=== PATIENT | male | born 1990 | race Caucasian/White ===

== ENCOUNTER 2021-08-15 19:28 | Emergency (ER) | payer SELFPAY ==
[2021-08-15] VITALS (7 sets, daily range): BP systolic 105–133; BP diastolic 54–85; PULSE 55–74; RESP 12–18; TEMP 36.7; O2SAT 97–100; BMI 25.0
--- NOTE | 2021-08-15 19:51 | ECG_ITS ---
APPROVED REPORT Exam: Resting ECG HR:67 bpm ECG Measurements Heart Rate 67 AXES PA 168 P -90 QRSd 106 QRS 62 QT 446 T 49 QTc 471 Conclusion Unusual P axis, possible ectopic atrial rhythm Abnormal ECG Electronically signed by : Levon Milligan MD 08/16/2021 17:34:46
[2021-08-15 20:12] LABS: Basophils # 0.1 K/mm3 (0-0.2); Basophils % 0.6 % (0.1-2.0); Eosinophils # 0.1 K/mm3 (0.0-0.4); Eosinophils % 0.3 % (0.1-12.0); Hematocrit 48.2 % (42.0-52.0); Hemoglobin 16.1 g/dL (14.1-18.0); Lymphocytes # 1.6 K/mm3 (0.7-4.5); Lymphocytes % 9.2 % (10-50); Mean Corpuscular HGB Conc 33.5 g/dL (31.8-35.4); Mean Corpuscular Hemoglobin 28.1 pg (27.0-31.2); Mean Platelet Volume 7.9 fl (7.4-10.4); Monocytes # 0.5 K/mm3 (0.1-1.0); Neutrophils # 15.4 K/mm3 (1.8-7.8); Neutrophils % 86.9 % (37.0-80.0); Platelet Count 396 K/mm3 (142-424); Red Blood Count 5.74 M/mm3 (4.60-6.20); Red Cell Distribution Width 13.3 % (11.5-17.5); White Blood Count 17.8 K/mm3 (4.8-10.8)
[2021-08-15 20:16] LABS: MANUAL DIFFERENTIAL MANUAL DIFFERENTIAL (MANUAL DIFF)
[2021-08-15 20:17] LABS: Alanine Aminotransferase 29 U/L (12-78); Albumin Level 4.8 g/dl (3.5-5.0); Albumin/Globulin Ratio 1.8 (1.1-1.8); Alkaline Phosphatase 69 U/L (38-126); Amylase 60 U/L (30-110); Anion Gap 16.3 mEq/L (5-15); Aspartate Amino Transferase 30 U/L (17-59); Bilirubin,Total 0.7 mg/dl (0.2-1.3); Blood Urea Nitrogen 13 mg/dl (9-20); Calcium 9.2 mg/dl (8.4-10.2); Carbon Dioxide 26 mmol/L (22.0-30.0); Chloride 99 mmol/L (98-107); Creatinine Clearance Estimated 170 mL/min (50-200); Estimated Glomerular Filt Rate 159 ml/min (>60); GFR (African American) 193 ML/MIN (>60); Globulin 2.7 g/dL (1.3-3.2); Glucose 179 mg/dl (74-100); Potassium 3.3 mmoL/L (3.5-5.1); Sodium 138 mmol/L (136-145); Total Protein,Serum 7.5 g/dl (6.3-8.2)
[2021-08-15 20:19] LABS: Lipase 44 U/L (23-300)
--- NOTE | 2021-08-15 20:25 | HMH.EDNVD ---
ED Disposition Clinical Impression: Abnormal electrocardiogram [ECG] [EKG] Tobacco poisoning Qualifiers: Encounter type: initial encounter Injury intent: accidental or unintentional Qualified Code(s): T65.291A - Toxic effect of other tobacco and nicotine, accidental (unintentional), initial encounter Disposition: Home, Self-Care Condition on Discharge: Good Instructions: DI for Nausea -- Adult Additional Instructions: fluids and see card for follow up Referrals: Provider,Referral, [Primary Care Provider] - - Critical Care Critical Care Time: No Attestation: On 08/15/21, the high probability of a clinically significant, sudden or life threatening deterioration of the following system(s) required my full and direct attention, intervention and personal management. The time I documented below is in addition to time spent performing reported procedures but includes the following listed in this critical care notation. Medical Decision Making - Medical Records Medical records reviewed: Yes: I reviewed the patient's medical records. - Ray Inquiry Pt receiving controlled substance: No Vital Signs: 08/15/21 20:03 08/15/21 20:15 08/15/21 21:00 Temperature 98.0 F Temperature Source Oral Pulse Rate 74 56 L Pulse Rate [Apical] 72 Respiratory Rate 16 18 15 Blood Pressure 112/54 L 108/85 L Blood Pressure [Right Arm] 105/57 L Blood Pressure Mean 74 Blood Pressure Mean [Right Arm] 73 Blood Pressure Source [Right Arm] Automatic Cuff Blood Pressure Position [Right Arm] Supine 02 Sat by Pulse Oximetry 97 97 100 Oxygen Delivery Method Room Air Room Air 08/15/21 21:30 08/15/21 22:27 08/15/21 23:00 Temperature Temperature Source Pulse Rate 62 74 61 Pulse Rate [Apical] Respiratory Rate 12 13 17 Blood Pressure 124/57 L 133/71 124/81 Blood Pressure [Right Arm] Blood Pressure Mean Blood Pressure Mean [Right Arm] Blood Pressure Source [Right Arm] Blood Pressure Position [Right Arm] 02 Sat by Pulse Oximetry 100 100 100 Oxygen Delivery Method 08/15/21 23:30 Temperature Temperature Source Pulse Rate 55 L Pulse Rate [Apical] Respiratory Rate 14 Blood Pressure 114/66 Blood Pressure [Right Arm] Blood Pressure Mean Blood Pressure Mean [Right Arm] Blood Pressure Source [Right Arm] Blood Pressure Position [Right Arm] 02 Sat by Pulse Oximetry 100 Oxygen Delivery Method - Lab Data Lab results reviewed: Yes: I reviewed the patient's lab results. Lab Results 08/15/21 20:00: WBC 17.8 H, RBC 5.74, Hgb 16.1, Hct 48.2, MCV 84.0, MCH 28.1, MCHC 33.5, RDW 13.3, Plt Count 396, MPV 7.9, Neut % (Auto) 86.9 H, Lymph % (Auto) 9.2 L, Boyle % (Auto) 3.0, Eos % (Auto) 0.3, Baso % (Auto) 0.6, Neut # (Auto) 15.4 H, Lymph # (Auto) 1.6, Boyle # (Auto) 0.5, Eos # (Auto) 0.1, Baso # (Auto) 0.1, Total Counted 100, Neutrophils % (Manual) 89 H, Lymphocytes % (Manual) 9 L, Monocytes % (Manual) 1 L, Eosinophils % (Manual) 1, Platelet Estimate Normal 08/15/21 20:00: Sodium 138, Potassium 3.3 L, Chloride 99, Carbon Dioxide 26, Anion Gap 16.3 H, BUN 13, Creatinine 0.60 L, Estimated Creat Clear 170, Estimated GFR 159, Est GFR ( Amer) 193, Glucose 179 H, Calcium 9.2, Total Bilirubin 0.7, AST 30, ALT 29, Alkaline Phosphatase 69, Troponin I < 0.01, Total Protein 7.5, Albumin 4.8, Globulin 2.7, Albumin/Globulin Ratio 1.8, Amylase 60 08/15/21 20:00: Lipase 44 08/15/21 20:00: Total Creatine Kinase 106 08/15/21 22:44: Troponin I < 0.01 Result diagrams: 08/15/21 20:00 08/15/21 20:00 Orders (Tests/Meds): ED MEDICATIONS Generic Name Dose Route Start Last Admin Trade Name Freq PRN Reason Stop Dose Admin Sodium Chloride 1,000 mls @ 999 mls/hr 08/15/21 20:15 08/15/21 20:12 Sod Chlor 0.9% 1000ml Bag IV 08/15/21 21:15 999 mls/hr .Q1H1M BENJAMIN Administration Sodium Chloride 1,000 mls @ 999 mls/hr 08/15/21 20:45 08/15/21 20:42 Sod Chlor 0.9% 1000ml Bag IV 08/15/21 21:45 99
[2021-08-15 20:29] LABS: Troponin I < 0.01 ng/ml (0.00-0.034)
[2021-08-15 20:52] LABS: Eosinophils % 1 % (0-3); Lymphocytes % 9 % (10-50); Monocytes % 1 % (2-9); Neutrophils % 89 % (42-76); Total Cells Counted 100
[2021-08-15 20:53] LABS: Platelet Estimate Normal
--- NOTE | 2021-08-15 22:26 | PC.NURSE ---
DARIUS MG spoke with cardiology, Dr. escamilla requesting a repeat EKG
--- NOTE | 2021-08-15 22:26 | ECG_ITS ---
APPROVED REPORT Exam: Resting ECG HR:64 bpm ECG Measurements Heart Rate 64 AXES IA 180 P 51 QRSd 96 QRS 48 QT 412 T 35 QTc 425 Conclusion Normal sinus rhythm with sinus arrhythmia Early repolarization Normal ECG Electronically signed by : Levon Milliagn MD 08/16/2021 17:34:03
[2021-08-15 22:47] LABS: Creatine Kinase 106 U/L (55-170)
[2021-08-15 23:18] LABS: Troponin I < 0.01 ng/ml (0.00-0.034)
[2021-08-15 23:47] LABS: Microscopic, Urine URINE MICROSCOPIC (MICROSCOPIC)
[2021-08-15 23:58] LABS: Appearance,Urine CLEAR (Clear); Bilirubin,Urine Negative (Negative); Blood, Urine Negative (Negative); Color,Urine YELLOW (Yellow); Glucose,Urine (UA) Negative (Negative); Ketones,Urine Negative (Negative); Leukocyte Esterase,Urine Negative (Negative); Nitrate,Urine Negative (Negative); Protein,Urine Negative (Negative); Urobilinogen,Urine 0.2 EU/dl (0.2)
[2021-08-16] LABS: Barbiturates Screen,Urine Negative ng/ml (<200)
[2021-08-16 00:01] LABS: Benzodiazepines Screen,Urine Negative ng/ml (<200)
[2021-08-16 00:02] LABS: Amphetamine/Metha Screen,Urine Negative ng/ml (<1000); Methadone Screen,Urine Negative ng/ml (<300)
[2021-08-16 00:05] LABS: Cannabinoid Screen,Urine Negative ng/ml (<50); Cocaine Screen,Urine Negative ng/ml (<300); Opiate Screen,Urine Negative ng/ml (<300); Phencyclidine Screen,Urine Negative ng/ml (<25)
[2021-08-16 00:06] LABS: Bacteria,Urine Trace /lpf; WBC,Urine Occasional #/hpf (0-3)
[2021-08-16 00:10] VITALS: BP 114/66; PULSE 64; RESP 14; TEMP 36.7; O2SAT 100
== END 2021-08-16 00:12 | disposition home or self-care (01) ==
LOC: UTC 19:42 → ER 19:43
PROVIDERS: Emergency Provider Emergency Medicine
DX: T65.291A Toxic effect of other tobacco and nicotine, accidental (unintentional), initial encounter (principal); R94.31 Abnormal electrocardiogram [ECG] [EKG]; R10.13 Epigastric pain
CPT/HCPCS: 80053; 80305; 81001; 82150; 82550; 83690; 84484; 85007; 85025; 93005; 96365; 96366; 99282; J2405

== ENCOUNTER → 2021-09-17 20:28 | Outpatient (CLI) | payer OTHER, SELFPAY | PROVIDERS: Visit Provider Nurse Practitioner Family | DX: Z20.822 Contact with and (suspected) exposure to COVID-19 (principal) | CPT/HCPCS: C9803; U0003; U0005 ==

== ENCOUNTER 2021-09-25 14:09 | Emergency (ER) | payer OTHER, SELFPAY ==
[2021-09-25 15:15] VITALS: BP 124/70; PULSE 72; RESP 19; TEMP 37.1; O2SAT 98; BMI 22.9
[2021-09-25 15:39] LABS: UTC Strep Screen (Rapid) Negative (Negative)
[2021-09-25 15:39] LABS: UTC Influenza A Antigen Negative (Negative); UTC Influenza B Antigen Negative (Negative)
--- NOTE | 2021-09-25 15:41 | HMH.EDUTC ---
[facility] [place] Disposition Clinical Impression: URI (upper respiratory infection) Qualifiers: URI type: unspecified URI Qualified Code(s): J06.9 - Acute upper respiratory infection, unspecified Disposition: Home, Self-Care Condition on Discharge: Good Instructions: Sore Throat, DI for Sinusitis, Sinusitis, DI for COVID-19 (Suspected or Confirmed ) Additional Instructions: *Monitor Temp, Over the counter Motrin or Tylenol as directed/as needed Tylenol every 4 hours and Motrin every 6 hours (as long as your family doctor has told you that you can take it) for fever or pain. and straight to ER if unable to lower temp less than 101.0 after medication given *Warm salt water gargles may help to soothe the throat *Throat Lozenges *Warm fluids like tea with honey may help to soothe the throat *Sleep elevated *Humidifier/Vaporizer *Flonase 2 sprays in each nostril daily but be aware that it may take 2-3 days before you notice improvement *Bromfed may cause drowsiness. Know how it effects you (your child) before driving, caring for small child, or sending your child to school. Not other antihistamines/allergy medications while taking bromfed Your throat swab was sent for culture. Those results are typically sent to your primary care. Be sure to follow up in 2-3 days with your family doctor/primary care physician if no improvement so they can review those result and treat if necessary. If you don?t have a primary care doctor, I recommend you get one but in the mean time, you will have to return to a walk in clinic Follow up IMMEDIATELY for new or worsening symptoms or no Noticeable improvement over the next 48-72 hours. 911 for difficulty breathing or swallowing You were tested for today for COVID19 your test result should be back in the next 24-48 hours, you can check your results on the [facility] [employer] portal to check your result if you have trouble logging on you may call You was given a handout with instructions for Self Quarantine and Self isolation for while you wait on test results and what to do if they are positive If you are positive the Health Dept will be contacting you also Make sure to take your Vitamins Vit. C Vit D and Zinc if you can take them Prescriptions: Brompheniramine/Pseudoephed/Dm [Bromfed Dm Cough Syrup] 5 - 10 ml PO Q46H PRN #200 ml PRN Reason: Cough Transmission Status: Pending to [facility] Fluticasone Propionate [Flonase 50mcg nasal spray 16gm] 1 spr NS DAILY #1 each Transmission Status: Pending to [facility] methylPREDNISolone [Medrol 4mg tab] 4 mg PO DIRECTED #21 tab Transmission Status: Pending to [facility] Azithromycin [Z-Maikel 250mg Tab] 250 mg PO DIRECTED #6 tab Transmission Status: Pending to [facility] Referrals: Yan Harry APRN [Primary Care Provider] - As needed Forms: Work/School Release Time of Disposition: 15:47 Medical Decision Making - Ray Inquiry Pt receiving controlled substance: No Ray was queried for this patient: No Vital Signs: 09/25/21 15:15 Temperature 98.7 F Temperature Source Oral Pulse Rate [Right Brachial] 72 Respiratory Rate 19 Blood Pressure [Right Arm] 124/70 Blood Pressure Mean [Right Arm] 88 Blood Pressure Source [Right Arm] Automatic Cuff Blood Pressure Position [Right Arm] Sitting 02 Sat by Pulse Oximetry 98 Oxygen Delivery Method Room Air - Lab Data Lab results reviewed: Yes: I reviewed the patient's lab results. Lab Results 09/25/21 15:16: Strep Scn Rapid Clinic Negative 09/25/21 15:29: Influenza Type A Ag Negative, Influenza Type B Ag Negative Orders (Tests/Meds): ORDERS Category Date Time Status Covid-19 Nasal PCR ([facility]) Routine Lab 09/25/21 15:30 Received Strep Screen Confirmation Stat Micro 09/25/21 15:16 Received [facility] UTC HPI - General Stated complaint: covid symptoms Time Seen by Provider: 09/25/21 15:41 Mode of Arrival: Ambulatory Source of Information: Patient [place]
[2021-09-25 15:52] VITALS: BP 124/70; PULSE 72; RESP 19; TEMP 37.1; O2SAT 98
== END 2021-09-25 15:57 | disposition home or self-care (01) ==
PROVIDERS: Emergency Provider Nurse Practitioner; PCP Nurse Practitioner Family
DX: J06.9 Acute upper respiratory infection, unspecified (principal); Z20.822 Contact with and (suspected) exposure to COVID-19; F41.8 Other specified anxiety disorders; F17.210 Nicotine dependence, cigarettes, uncomplicated
CPT/HCPCS: 87804; 87880; 99203; C9803; G0463; U0003; U0005

== ENCOUNTER → 2021-11-26 16:29 | Outpatient (CLI) | payer OTHER, SELFPAY | PROVIDERS: Visit Provider Nurse Practitioner Family | DX: Z20.822 Contact with and (suspected) exposure to COVID-19 (principal) | CPT/HCPCS: C9803; U0003; U0005 ==